=== PATIENT | female | born 1945 | race Caucasian/White ===

== ENCOUNTER 2023-01-27 00:40 | Emergency (ER) | payer MEDICARE, OTHER ==
[~2023-01-27] VITALS: Ht 172.7 cm; Wt 104.3 kg
[2023-01-27] MEDS ORDERED: IV NS 0.9% 1,000 ML BAG IV ONE (01:00)
--- NOTE | 2023-01-27 01:12 | NUR ---
Patient AOx4, able to express her concerns. Ro states she has back and neck pain, other than thatn no issues. Discussed plan of care, ro verbalized agreeement. All safety precautions taken.
--- NOTE | 2023-01-27 01:14 | NUR ---
COVID SWAB DONE AND SENT LAB
--- NOTE | 2023-01-27 01:15 | NUR ---
SEEN BY MD AT BEDSIDE
[2023-01-27 01:59] LABS: BASOPHILS # (AUTO) 0.1 K/uL (0.0-0.2); BASOPHILS % (AUTO) 0.5 % (0.0-2.0); EOSINOPHILS % (AUTO) 0.1 % (0.0-6.0); HEMATOCRIT 47 % (33-45); HEMOGLOBIN 15.2 g/dL (11.5-14.8); LYMPHOCYTES # (AUTO) 1.5 K/uL (0.8-4.8); LYMPHOCYTES % (AUTO) 7.9 % (20.0-44.0); MEAN CORPUSCULAR HGB CONC 33 g/dl (31.0-36.0); MEAN CORPUSCULAR VOLUME 89 fL (82-100); MONOCYTES # (AUTO) 1.2 K/uL (0.1-1.30); MONOCYTES % (AUTO) 6.2 % (2.0-12.0); NEUTROPHILS # (AUTO) 16.6 K/uL (1.8-8.9); NEUTROPHILS % (AUTO) 85.3 % (43.0-81.0); PLATELET COUNT (AUTO) 328 K/uL (150-450); RED BLOOD CELL COUNT(AUTO) 5.22 MIL/uL (4.0-5.2); WHITE BLOOD COUNT (AUTO) 19.5 K/uL (4.3-11.0)
[2023-01-27 02:17] LABS: CALCIUM, SERUM 10.6 mg/dL (8.5-10.1); CARBON DIOXIDE 27 mmol/L (21-32); CHLORIDE 99 mmol/L (98-107); CREATININE 1.1 mg/dL (0.6-1.3); GLUCOSE 321 mg/dL (74-106); SODIUM SERUM 135 mmol/L (136-145); UREA NITROGEN, BLOOD 22 mg/dL (7-18)
[2023-01-27 02:27] LABS: ALANINE AMINOTRANSFERASE 29 U/L (12-78); ALBUMIN 3.7 g/dL (3.4-5.0); ALKALINE PHOSPHATASE 126 U/L (46-116); ASPARTATE AMINOTRANSFERASE 24 U/L (15-37); BILIRUBIN,DIRECT 0.1 mg/dL (0.0-0.2); BILIRUBIN,TOTAL 0.5 mg/dL (0.2-1.0); TOTAL PROTEIN, SERUM 8.2 g/dL (6.4-8.2)
--- NOTE | 2023-01-27 03:40 | NUR ---
SENT ALL IMAGES TO DR GALLO
--- NOTE | 2023-01-27 03:45 | NUR ---
HARD C-COLLAR APPLIED
[2023-01-27] MEDS ORDERED: KETOROLAC TROMETHAMINE INJ 30 MG/ML VIAL IV ONE (04:00)
--- NOTE | 2023-01-27 04:01 | NUR ---
DR ALAN ON THE PHONE WITH DR GALLO
[2023-01-27] MEDS ORDERED: KETOROLAC TROMETHAMINE 15 MG/ML VIAL ONE (04:16)
[2023-01-27 04:53] LABS: BILIRUBIN,URINE NEGATIVE (NEGATIVE); COLOR,URINE DARK YELLOW (YELLOW); LEUKOCYTE ESTERASE ,URINE TRACE (NEGATIVE); NITRITE, URINE NEGATIVE (NEGATIVE); PH,URINE 5.5 (5.0-8.0); PROTEIN,URINE NEGATIVE (NEGATIVE); UGLUCOSE 3+ mg/dL (NEGATIVE); UROBILINOGEN,URINE 0.2 EU/dL (0.2)
[2023-01-27 04:57] LABS: BACTERIA,URINE Rare /HPF (None Seen); SQUAMOUS EPITHELIAL CELL,UR Few /HPF (None Seen); WBC,URINE 0-2 /HPF (0-3)
--- NOTE | 2023-01-27 05:30 | NUR ---
PT GOT ACCEPTED AT [facility] UNDER CARE OF DR GALLO. GOING TO RM [id number]. NUMBER FOR REPORT: [phone] [facility] AT [facility]SF[facility] WILL CALL US BACK WITH AMBULANCE ETA.
--- NOTE | 2023-01-27 05:45 | NUR ---
FAXED FACE SHEET AND CLINICALS TO [facility] AT [phone]
--- NOTE | 2023-01-27 07:38 | NUR ---
CALLED [facility] TRANSFER LINE AND WAS NOTIFIED THAT THE PT ETA FOR TRANSPORT IS [id number]
--- NOTE | 2023-01-27 08:11 | NUR ---
REPORT GIVEN TO ROSELYN MENDOZA FOR SRI
[2023-01-27 08:22] VITALS: BP 140/74
[2023-01-27] MEDS ORDERED: ACETAMINOPHEN ES 500 MG TABLET PO ONE (08:30)
--- NOTE | 2023-01-27 08:30 | NUR ---
TYLENOLE 1 GM PO GIVEN TOLORATED WILL
[2023-01-27] MEDS ORDERED: ACETAMINOPHEN ES 500 MG TABLET ONE (08:34)
--- NOTE | 2023-01-27 08:45 | NUR ---
TRANSFER TO [facility] BY [facility]
== END 2023-01-27 09:03 | disposition short-term general hospital (02) ==
LOC: ER 00:51
DX: S12.110A Anterior displaced Type II dens fracture, initial encounter for closed fracture (principal); N28.9 Disorder of kidney and ureter, unspecified; R55 Syncope and collapse; R73.9 Hyperglycemia, unspecified; Z88.0 Allergy status to penicillin; Z88.8 Allergy status to other drugs, medicaments and biological substances; W18.30XA Fall on same level, unspecified, initial encounter; Y93.89 Activity, other specified; Y92.89 Other specified places as the place of occurrence of the external cause; Y99.8 Other external cause status
CPT/HCPCS: 99291; 72125; 96374; 96361; 87426; 93005; 71045; 70450; 85025; 80048; 80076; 81001; 36415; 84484 ×2; 86850; J7030; J1885; C9803